=== PATIENT | male | born 1975 | race Caucasian/White ===

== ENCOUNTER 2020-04-29 08:27 | Outpatient (CLI) | payer OTHER, SELFPAY ==
--- NOTE | 2020-04-29 08:36 | MR_ITS ---
WS: [id number] MRI CERVICAL SPINE NONCONTRAST TECHNIQUE: Sagittal T1, T2 and STIR imaging. Axial T2, gradient, and fiesta imaging. CLINICAL INFORMATION: M25.519 Pain in unspecified shoulder COMPARISON: None. FINDINGS: Straightening of the normal cervical lordosis. Mild disc bulging C3-C4, C4-C5 and C5-C6. Cord signal is normal. C2-C3: Normal. C3-C4: Mild left and no significant right foraminal narrowing. Spinal canal is patent. Mild facet art hropathy. C4-C5: Osteophytic ridging. Mild facet arthropathy. Mild bilateral foraminal narrowing. C5-C6: Disc osteophytic ridging. Slight effacement of ventral thecal sac. Moderate right greater than left bony foraminal narrowing. C6-C7: Mild left and no significant right foraminal narrowing. Osteophytic ridging. Mild facet arthro [place]. C7-T1: Normal. Visualized brain stem structures: Normal. Prevertebral soft tissues: Normal. MR/MR cervical spin wo con* [id number] IMPRESSION: 1. Straightening of the normal cervical lordosis. No high-grade central canal narrowing. 2. Mild disc bulging worse at C5-C6 with slight effacement of ventral thecal s ac and mild central canal stenosis. Moderate right greater than left bony britt inal narrowing at this level. 3. Mild disc bulging with slight effacement of the ventral thecal sac at C3-C4 and C4-C5. 4. Otherwise mild bony foraminal narrowing described above.
== END 2020-04-29 08:28 | disposition home or self-care (01) ==
LOC: RADWPI 08:31
PROVIDERS: Family Provider Family Medicine; PCP Nurse Practitioner Family; Visit Provider Orthopaedic Surgery
DX: M54.12 Radiculopathy, cervical region (principal); M50.222 Other cervical disc displacement at C5-C6 level
CPT/HCPCS: 72141

== ENCOUNTER 2020-05-20 11:14 | Outpatient (CLI) | payer OTHER, SELFPAY ==
--- NOTE | 2020-05-20 | USCV_ITS ---
Stress Echo Sixto Sexton Age: 44 Gender: M : 1975 Exam Date: 05/20/2020 11:47 Ordering Phys: Cinthia Anderson MD ([email or web address]) Technologist: Dori Blankenship [place] [facility] [place]: Chest Pain Rhythm: Sinus Patient History: Smoker- former, , Chest pain, Hyperlipidemia Cardiac Medications: NONE Medications in past 24 hours: NONE Contrast: Stress Results Protocol: Nader Total dose(mL): Exercise Duration (min:sec): 10:21 METS: 13.5 Resting HR: 94 Resting BP: 138 / 88 Peak HR: 182 Peak BP: 218 / 88 Max Predicted HR: 177 103 % Max Predicted HR Target HR: 150 Double Product: [id number] Stress Summary: The patient's target heart rate was achieved The patient exhibited a hypertensive response with stress BP Response: Abnormal increase in BP during/after stress Reason for Termination: Test terminated after reaching target heart rate (85% max predicted) Cardiac Symptoms: Short of Breath ECG Analysis Resting ECG: Stress ECG: Arrhythmia: MEASUREMENTS (Male/Female) Normal Values FINDINGS Baseline echocardiogram: Normal left ventricular size and systolic function with ejection fraction estimated at 55%. Mildly thickened mitral valve. Normal right ventricular size and systolic function. Peak exercise echocardiogram: Augmentation of baseline left ventricular systolic function at peak exercise. No new regional wall motion abnormality with stress. Recovery echocardiogram: Left ventricular systolic function returned back to near normal. No new regional wall motion abnormality noted. CONCLUSIONS 1. This is a exercise stress echocardiogram. 2. Patient exercised for 10 minutes 21 seconds and reached 13.5 METS. Double product of 39,677. 3. Normal EKG response to treadmill exercise. Refer to EKG portion of the study for details. 4. Normal resting echocardiogram. There were no stress-induced wall motion abnormalities. Cinthia Anderson MD (Electronically Signed) Final Date: 23 May 2020 17:25 S
[2020-05-20 11:57] VITALS: BMI 30.4
--- NOTE | 2020-05-20 11:57 | ECG_ITS ---
[facility] Test Date: 2020-05-20 Pat Name: Sixto Sexton Department: Room: Gender: Male Rn Telephone Triage: : 1975 Requested By: Cinthia Anderson Order Number: [id number] Goode MD: Cinthia Anderson M.D. Interpretive Statements NAME OF STUDY: TREADMILL STRESS ECHOCARDIOGRAM INDICATION: Chest Pain PROCEDURE: At the baseline, the patient's blood pressure was 138/88 mmHg, oxygen saturation of 96% with a heart rate of 94 bpm. The baseline electrocardiogram showed normal sinus rhythm with right axis deviation. Normal ST and T's. The patient exercised for 10 minutes 21 seconds on a standard Nader protocol. Patient attained a maximum heart rate of 182 beats per minute(102 % of the maximum predicted heart rate) with a blood pressure at the peak exercise of 215/58 mm Hg and oxygen saturation 96%. The EKG at the peak exercise revealed sinus tachycardia with no significant ST-T wave changes. Patient did not have any chest pain or any significant EKG changes with the exercise. Study was terminated due to shortness of breath and fatigue. During the recovery phase, there were no new changes. Blood pressure at the end of the recovery phase was 135/53 mm Hg with a heart rate of 114 beats per minute and oxygen saturation of 96%. Echocardiographic pictures were taken at the baseline, immediately following the peak exercise and during the recovery phase. CONCLUSION: 1. Normal EKG response to treadmill exercise 2. No exercise-induced chest pain or cardiac arrhythmia 3. Excellent exercise tolerance, attained a maximum of 13.5 METs. Maximum VO2 of 47.3 mL/kg/min. 4. Please see separate report for the echocardiographic response to exercise. Electronically Signed On 05-20-2020 13:24:04 CDT by Cinthia Anderson M.D. [id number]
[2020-05-20 12:40] VITALS: BP 133/84; PULSE 114
== END 2020-05-20 11:15 | disposition home or self-care (01) ==
LOC: CDL 11:16
PROVIDERS: PCP Nurse Practitioner Family; Visit Provider Internal Medicine Cardiovascular Disease
DX: R07.9 Chest pain, unspecified (principal)
CPT/HCPCS: 93017; 93350

== ENCOUNTER → 2022-02-13 18:49 | Outpatient (BNVA) | payer OTHER, SELFPAY | PROVIDERS: PCP Nurse Practitioner Family; Visit Provider Family Medicine Adult Medicine | DX: S99.922A Unspecified injury of left foot, initial encounter (principal); W20.8XXA Other cause of strike by thrown, projected or falling object, initial encounter | CPT/HCPCS: 73630 ==